=== PATIENT | female | born 1955 | race Caucasian/White ===

== ENCOUNTER → 2019-06-01 | Outpatient (CLI) | payer MEDICARE ==
[~2019-06-01] MED LIST: CIDA500T2 PO; CITRTAB18 PO; FEMH0.5T PO; IBUP1TAB7 PO; LETR2.5T2 PO; LIDOCAINE 1% MDV 20ML VIAL As Ordered ONE; LISI10TA4 PO; PROB1CAP PO; VENL37TA PO; VITA500C19 PO
[2019-06-01 12:00] VITALS: BP 142/77
--- NOTE | 2019-06-01 17:11 | REP ---
ULTRASOUND-GUIDED LEFT ILIAC BONE MASS BIOPSY The procedure was performed under the direct supervision of Dr. Bruno. Patient has a history of a left iliac bone mass seen on a previous MRI from [facility] performed on 05/04/2019. The risks and benefits of the procedure were explained to the patient and informed consent was obtained. The left iliac mass was localized using ultrasound guidance. The skin was prepped and draped in a sterile fashion. 1% lidocaine was used as a local anesthetic. Using ultrasound guidance a 17/18 gauge coaxial needle biopsy system was inserted and advanced into the mass. Six core biopsy samples were obtained and sent to lab. The patient tolerated the procedure well and there were no immediate complications. After the appropriate amount of monitored convalescence the patient was discharged from the department. Electronically Signed by YOMAIRA Granda 06/01/2019 03:17 P Electronically Signed by Vinny Bruno MD 06/01/2019 05:02 P
== END ==
LOC: M IRPRO 09:52
PROVIDERS: ATTEND Internal Medicine Medical Oncology
DX: C79.51 Secondary malignant neoplasm of bone (principal); Z88.1 Allergy status to other antibiotic agents; Z88.2 Allergy status to sulfonamides

== ENCOUNTER → 2019-06-20 | Outpatient (CLI) | payer MEDICARE ==
[~2019-06-20] MED LIST changes: +IBRA125C PO; -LIDOCAINE 1% MDV 20ML VIAL As Ordered ONE
--- NOTE | 2019-06-21 09:44 | REP ---
PET/CT: HISTORY: Restaging breast CA. Possible metastasis. Comparison CT study chest abdomen pelvis June 07, 2019. Comparison pelvic MRI study May 04, 2019. The patient is status post ultrasound-guided needle biopsy of an iliac crest mass with pathology showing metastatic carcinoma consistent with breast primary. TECHNIQUE: 50 minutes following the intravenous injection of a 9.06 mCi dose of F-18 FDG, three-dimensional PET scintigraphy is acquired from the skull base to the proximal thighs. Triplanar noncontrast CT scanning is acquired through the same anatomic range for attenuation correction, and image registration with scan parameters optimized to minimize radiation exposure to the patient. PET scintigraphy and CT datasets were fused and displayed on a workstation with multiplanar and projection display capability. PET/CT FINDINGS: Head and neck soft tissues are unremarkable. There is no abnormal hypermetabolic uptake within the chest cavity. There is asymmetric soft tissue density in the left superior breast proximally 12-o'clock position. There is some visible asymmetry in uptake although soft tissue uptake is low level avidity, maximum standard uptake value in this asymmetric tissue is only 1.96. This is equivocal. The area in question measures approximately 3.3 cm in diameter. This tissue is not frankly hypermetabolic. No other evidence of hypermetabolic focus in the breast soft tissues. There is no evidence of axillary lymphadenopathy or axillary hypermetabolic uptake. There is a low-density metastatic lesion in the right lobe of the liver which is hypermetabolic. Maximum standard uptake value 6.37. Posterior to this hypermetabolic lesion there is a low-density area suggestive of metastatic disease which does not show avidity beyond background liver parenchyma., maximum SUV value 4.9. There is a focus of hypermetabolic uptake in the sigmoid colon in the right pelvis, which is well above background gastrointestinal mucosal uptake in this patient. Maximum standard uptake value here is 10.92. This is most likely an incidental finding. A primary colon malignancy cannot be excluded. There is some diverticulosis in this segment of the colon and diverticulitis related uptake is a possibility as well. No other intra-abdominal or pelvic hypermetabolic uptake is seen. There is evidence of widespread skeletal metastatic disease as seen on previous imaging studies. Metastatic foci are seen in the skeleton bilaterally in the pelvic bones, in the lumbar spine, at several levels of the thoracic spine, in the manubrium, left scapula, left proximal humerus, and at least one right posterior rib. Hypermetabolic avidity ranges in these metastatic foci from 3.02 6.78. The large exophytic left iliac crest lesion is the most avid with maximum standard uptake value of 6.78. IMPRESSION: There is widespread skeletal metastatic disease. There is hepatic metastatic disease. There is asymmetric but non-hypermetabolic uptake in an area of asymmetric density in the left superior breast. There is a focus of hypermetabolic uptake in the sigmoid colon which is probably incidental but may reflect a primary colon malignancy. Electronically Signed by Vinny Bruno MD 06/21/2019 02:35 P
== END ==
LOC: M PLARAD 14:01
PROVIDERS: ATTEND Internal Medicine Medical Oncology
DX: C50.811 Malignant neoplasm of overlapping sites of right female breast (principal); C50.812 Malignant neoplasm of overlapping sites of left female breast
CPT/HCPCS: 78815; A9552

== ENCOUNTER → 2019-06-22 | Outpatient (CLI) | payer MEDICARE ==
--- NOTE | 2019-06-24 08:19 | RADONC ---
RADIATION ONCOLOGY CONSULTATION NOTE DATE: 06/22/2019 CHART NUMBER: [id number] DIAGNOSIS: Left breast cancer. STAGE: IV, widely metastatic. ECOG PERFORMANCE STATUS: 0 CONSULTATION NOTE: Ms. Garcia is a very pleasant 63-year-old white female with a diagnosis of what appears to be widely metastatic carcinoma consistent with a breast primary, which is estrogen receptor positive, progesterone receptor positive and HER2 negative, who is presenting to us today for discussion of possible palliative radiation therapy to various bony sites. HISTORY OF PRESENT ILLNESS: The patient was in her usual state of health and is an OR nurse at [employer]. 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 She noticed, however, increasing low back pain and left hip pain, which she initially thought was secondary to pushing stretchers in the hospital. Eventually she was seen at her hospital and an MRI was done of the lumbosacral spine on 05/01/2019 and found destructive lesions in the L4 and L5 areas, as well as in the left hip. There was a large 5.1 cm x 5.7 cm anterior superior iliac lucency. There is also disease in the superior aspect of the acetabulum. On 06/01/2019, the patient underwent a left iliac bone core biopsy and pathology revealed metastatic carcinoma consistent with a breast primary. The tumor was found to be estrogen receptor positive, progesterone receptor positive and HER2 negative. The patient was seen by our medical oncologist, Dr. Brooks and initiated systemic therapy with letrozole. She reports that since she began the letrozole, her pain has improved significantly. She is able to function now without difficulty. A PET CT scan was done on 06/20/2019 and revealed multiple areas of hypermetabolic uptake throughout the bony skeleton, as well as hypermetabolic uptake in the right lobe of liver with a maximum SUV value of 6.37. This was consistent with hepatic metastatic disease. The patient is now presenting for discussion of possible external beam radiation therapy, but is scheduled to see Dr. Brooks tomorrow to discuss additional systemic type therapy considering her new diagnosis of liver metastasis. PAST MEDICAL HISTORY: The patient's past medical history is positive for cataracts, hypertension and arthritis in the right knee. She has had a with tubal ligation. She has been in otherwise generally good health. SOCIAL HISTORY: The patient does not smoke cigarettes nor abuse alcohol. ALLERGIES: The patient is allergic to SULFA DRUGS, CLINDAMYCIN and ASPARTAME. FAMILY HISTORY: The patient's family history is positive for mother with pancreatic cancer. REVIEW OF SYSTEMS: The patient's review of systems is positive for some bilateral left and right hip pain, which is improving. It is otherwise noncontributory. She denies nausea, vomiting, fevers, chills, night sweats, diplopia, headaches, anxiety or depression, anorexia, weight loss, visual disturbances, chest pain, urinary or bowel difficulties, bone pain, or neurological problems. PHYSICAL EXAMINATION: The patient is a well-developed, well-nourished female in no acute distress. HEENT exam is normocephalic, atraumatic. Extraocular movements are intact. There is no palpable cervical, supraclavicular, infraclavicular, axillary, or inguinal lymphadenopathy present. Lungs are clear to auscultation and percussion. Heart has a regular rate and rhythm. Abdomen is benign with no hepatosplenomegaly, masses, or tenderness. Skeletal examination reveals no tenderness to pressure or percussion of the bony skeleton. Extremities reveal no clubbing, cyanosis, or edema. Neurologic exam is grossly intact, as is the remainder of the physical examination. ASSESSMENT: I had a very lengthy discussion with this patient and her . At this time, she appears to be responding nicely to letrozole. She reports that since she has been taking that medication, her pain has improved significantly. She actually is able to function without difficulty, although she does take some ibuprofen. As per my discussion with Dr. Brooks and the note from our medical oncologist, Dr. Brooks dated 06/12/2019, in light of her large metastatic focus of liver disease, systemic therapy would be the primary consideration for treatment for this patient. At the present time, the patient is improving and radiation can be delayed at this point. I explained to the patient that our role is purely quality of life. We can treat most bones for this patient and keep them from breaking and keep her out of pain as indicated. Radiation usually can be delivered safely one time to almost any bone in the body. If not necessary, I would prefer to withhold radiation until it is needed. A second course of treatment is always more difficult and may lead to serious side effects. It can be delivered to most sites if absolutely necessary. In light of the fact that chemotherapy is being planned, I would prefer not to drop the patient's blood counts at this point if she is not having any significant pain and is improving. I gave the patient my cell phone number and office number. We are here, and I made clear that we can treat any area that is causing her symptoms. I have not set her up with any followup in our office; however, I let her know that she can call if she is having symptoms or decides she really wishes to undergo treatment. In addition, she will be referred back to us by her medical oncologist, Dr. Angie Brooks if she thinks radiation is indicated. Thank you for allowing us to participate in the care of this very pleasant woman. As always, warm regards. cc: MD Sascha Todd, DO
== END ==
LOC: M ONCR 13:42
PROVIDERS: ATTEND Radiology Radiation Oncology
DX: C50.912 Malignant neoplasm of unspecified site of left female breast (principal); G89.29 Other chronic pain; M54.5 Low back pain; M89.9 Disorder of bone, unspecified; I10 Essential (primary) hypertension; M17.11 Unilateral primary osteoarthritis, right knee; Z88.2 Allergy status to sulfonamides

== ENCOUNTER → 2019-06-22 | Outpatient (CLI) | payer MEDICARE ==
--- NOTE | 2019-06-22 16:58 | REP ---
BILATERAL HIPS: AP and frogleg views of bilateral hips performed. I see no fracture or dislocation at the right hip. There are mild degenerative changes in the form of mild joint space narrowing, subchondral sclerosis and spurring. There is an oval lucent lesion in the right iliac bone which measures approximately 5.4 x 2.4 cm. On the left, no fracture or dislocation is seen. There are mild degenerative changes at the left hip joint with joint space narrowing, subchondral sclerosis and spurring. Large expansile lytic lesion is seen of the lateral left iliac wing. A smaller lytic lesion is seen in the more inferior aspect of the left iliac bone just above the acetabulum measuring 2.7 cm in diameter. IMPRESSION: Mild degenerative changes of the hips. Lytic lesion right iliac bone and two lytic lesions left iliac bone. Electronically Signed by Dimitri Jimenez MD 06/23/2019 03:56 P
--- NOTE | 2019-06-22 17:01 | REP ---
BILATERAL FEMURS: AP and lateral views of bilateral femurs performed. In the distal right femur in the supracondylar region there is a round lytic lesion 1.9 cm in diameter consistent with a metastatic lesion. Moderate degenerative changes are seen at the knee joint with lateral joint space narrowing, subchondral sclerosis and spurring. There is also patellofemoral joint space narrowing, subchondral sclerosis and spurring. In the mid shaft of the left femur, there is a possible subcentimeter intramedullary lytic lesion in the femoral shaft. No other definite lytic lesions are seen. There are mild degenerative changes of the left knee. IMPRESSION: Lytic lesion distal right femur, 1.9 cm in diameter. Possible subcentimeter lytic lesion mid shaft left femur. Electronically Signed by Dimitri Jimenez MD 06/23/2019 03:56 P
== END ==
LOC: M RAD 15:24
PROVIDERS: ATTEND Internal Medicine Medical Oncology
DX: C41.9 Malignant neoplasm of bone and articular cartilage, unspecified (principal)